=== PATIENT | male | born 1995 | race Caucasian/White ===

== ENCOUNTER 2020-11-20 13:08 | Emergency (ER) | payer OTHER ==
[~2020-11-20] VITALS: Ht 188 cm; Wt 73.0 kg
[2020-11-20 13:28] VITALS: BP 130/66
[2020-11-20] MEDS ORDERED: iohexol 350MG/ML 100ml bottle IV ONE (13:39)
[2020-11-20 13:58] LABS: EOSINOPHILS % (AUTO) 0.1 % (0-6); HEMOGLOBIN 15.8 g/dl (14.0-17.9); MONOCYTES # (AUTO) 0.6 X10'3 (0-0.9); RED BLOOD COUNT 5.28 X10'6 (4.70-6.10)
[2020-11-20 14:00] LABS: BASOPHILS % (AUTO) 0.1 % (0-1); HEMATOCRIT 45.5 % (42.0-52.0); LYMPHOCYTES % (AUTO) 19.2 % (21-51); MEAN CORPUSCULAR HGB CONC 34.8 g/dL (33.0-36.5); MEAN CORPUSCULAR VOLUME 86.2 FL (78-98); MEAN PLATELET VOLUME 9.3 FL (7.4-10.4); NEUTROPHILS # (AUTO) 3.8 X10'3 (1.8-7.7); NEUTROPHILS % (AUTO) 69.6 % (42-75); PLATELET COUNT 129 X10'3 (140-440); WHITE BLOOD COUNT 5.5 X10'3 (4.5-11.0)
[2020-11-20 14:08] LABS: D-DIMER 0.71 MG/L FEU (0-0.50)
[2020-11-20 14:12] LABS: ALANINE AMINOTRANSFERASE 38 U/L (12-78); ALBUMIN 3.6 G/DL (3.4-5.0); ALKALINE PHOSPHATASE 72 IU/L (46-116); ANION GAP 9 (8-16); ASPARTATE AMINO TRANSFERASE 28 U/L (10-37); BILIRUBIN,TOTAL 0.8 MG/DL (0.1-1.0); BLOOD UREA NITROGEN 12 MG/DL (7-18); BUN/CREATININE RATIO 13.6 (5.4-32.0); CALCIUM 8.5 MG/DL (8.5-10.1); CHLORIDE 105 MMOL/L (99-107); CREATININE 0.88 MG/DL (0.60-1.10); GLUCOSE 95 MG/DL (70-104); POTASSIUM 4.4 MMOL/L (3.5-5.1); SODIUM 142 MMOL/L (135-145); TOTAL CARBON DIOXIDE 27.6 MMOL/L (24-32); TOTAL PROTEIN 7.2 G/DL (6.4-8.2); eGFR > 90 ML/MIN
[2020-11-20 15:17] LABS: PLATELET ESTIMATE DECREASED
[2020-11-20 15:19] LABS: ELLIPTOCYTES FEW; GIANT PLATELET FEW
[2020-11-20] MEDS ORDERED: PRED20TA PO (17:09)
[2020-11-20] MEDS ORDERED: ALBU6.7H9 INH (17:09)
[2020-11-20] MEDS ORDERED: LEVO500T89 PO (17:09)
[2020-11-20] MEDS ORDERED: BUDE90AE IH (17:09)
== END 2020-11-20 17:31 | disposition home or self-care (01) ==
LOC: ER 13:08
DX: U07.1 COVID-19 (principal); J12.82 Pneumonia due to coronavirus disease 2019; R42 Dizziness and giddiness; R51.9 Headache, unspecified; R50.9 Fever, unspecified; R07.89 Other chest pain; R06.02 Shortness of breath; R55 Syncope and collapse; Z79.2 Long term (current) use of antibiotics; Z79.899 Other long term (current) drug therapy
CPT/HCPCS: 36415; 71045; 71275; 80053; 83880; 84484; 85008; 85025; 85379; 93005; 99285; Q9967